=== PATIENT | male | born 1960 | race Caucasian/White ===

== ENCOUNTER → 2017-12-05 | Day surgery (SDC) | payer OTHER | LOC: MSO 10:00 | DX: Z12.11 Encounter for screening for malignant neoplasm of colon (principal); Z83.71 Family history of colonic polyps | CPT/HCPCS: 00812; J2704; J3010; J7120 ==

== ENCOUNTER 2022-07-03 11:51 | Emergency (ER) | payer BC ==
[2022-07-03] MEDS ORDERED: CEPHALEXIN500 M1 PO (13:17)
[2022-07-03 13:36] VITALS: BP 129/80
== END 2022-07-03 13:23 | disposition home or self-care (01) ==
LOC: ED 11:51
DX: S81.012A Laceration without foreign body, left knee, initial encounter (principal); Z23 Encounter for immunization; W29.3XXA Contact with powered garden and outdoor hand tools and machinery, initial encounter; Y93.H2 Activity, gardening and landscaping
CPT/HCPCS: 90715

== ENCOUNTER → 2025-01-17 | Outpatient (CLI) | payer BC ==
[~2025-01-17] MED LIST: CEPHALEXIN500 M1 PO
== END ==
LOC: RAD 10:53
DX: M18.9 Osteoarthritis of first carpometacarpal joint, unspecified (principal)